=== PATIENT | male | born 1970 | race Caucasian/White ===

== ENCOUNTER → 2017-09-02 | Outpatient (CLI) | payer OTHER ==
--- NOTE | 2017-09-02 16:10 | DIAGNOSTIC IMAGING REPORT ---
L KNEE 1 OR 2 VIEWS ROUTINE CLINICAL HISTORY: PAIN IN L KNEE pain COMPARISON: None. DISCUSSION: The bones and joint spaces appear intact. There is no evidence of fracture, dislocation or bony disease. There is no evidence for soft tissue swelling. IMPRESSION: Negative study. The above report was generated using voice recognition software. It may contain grammatical, syntax or spelling errors. Electronically signed by: Brian Murdock M.D. 09/02/2017 4:09 PM Dictated Date/Time: 09/02/2017 4:08 PM
== END | disposition home or self-care (01) ==
LOC: C.RAD1850 15:54
PROVIDERS: ATTEND Family Medicine
DX: M25.562 Pain in left knee (principal)